=== PATIENT | female | born 1985 | race American Indian/Alaskan Native ===

== ENCOUNTER 2021-01-10 13:06 | Emergency (ER) | payer SELFPAY ==
[2021-01-10] MEDS ORDERED: IPRATROPIUM 0.02% NEBU 2.5 ML IH ONE ×2 (13:20→13:21)
[2021-01-10] MEDS ORDERED: ALBUTEROL 2.5 MG/3 ML NEBU IH ONE ×2 (13:20→13:21)
[2021-01-10] MEDS ORDERED: SODIUM CHLORIDE 0.9% 1000 ML 1,000 ML IV ONE (13:21)
[2021-01-10] MEDS ORDERED: methylPREDNISolone Sod Succinate 125 MG/2 ML INJ IV ONE (13:22)
--- NOTE | 2021-01-10 13:40 | Emergency Department Report ---
ED Asthma HPI - General Chief Complaint: Dyspnea/Respdistress Stated Complaint: ASTHMA Time Seen by Provider: 01/10/21 13:21 Source: patient Mode of arrival: Ambulatory Limitations: No Limitations - History of Present Illness Initial Comments: Patient is a 35-year-old F [place] female with past medical history of asthma since she was driven is presenting with asthma exacerbation. Patient states for the last 2 to 3 days she has had increased wheezing and shortness of breath. She is run out of her albuterol inhaler. Patient is dry cough. Thinks the symptoms are related to increased pollen count. Patient states she has some soreness in the chest from coughing and wheezing MD Complaint: "asthma attack" - Related Data Previous Rx's Medication Instructions Recorded Last Taken Type ALBUTEROL NEB's [Proventil 0.083% 5 mg IH TID PRN #30 neb 01/10/21 Unknown Rx NEBS] Albuterol Mdi (or & Nicu Only) 2 puff IH QID PRN #1 inhalation 01/10/21 Unknown Rx [ProAir HFA Inhaler] Benzonatate [Tessalon Perles] 100 mg PO Q8HR #10 capsule 01/10/21 Unknown Rx predniSONE 10 mg PO .TAPER #21 tab 01/10/21 Unknown Rx Allergies Allergy/AdvReac Type Severity Reaction Status Date / Time amoxicillin Allergy Hives Verified 01/10/21 13:49 ED Review of Systems ROS: Stated complaint: ASTHMA Other details as noted in HPI Comment: All other systems reviewed and negative ED Past Medical Hx - Past Medical History Hx Asthma: Yes - Surgical History Past Surgical History?: Yes Additional Surgical History: endometriosis and breast reduction - Medications Home Medications: Home Medications Medication Instructions Recorded Confirmed Last Taken Type ALBUTEROL NEB's [Proventil 0.083% 5 mg IH TID PRN #30 neb 01/10/21 Unknown Rx NEBS] Albuterol Mdi (or & Nicu Only) 2 puff IH QID PRN #1 inhalation 01/10/21 Unknown Rx [ProAir HFA Inhaler] Benzonatate [Tessalon Perles] 100 mg PO Q8HR #10 capsule 01/10/21 Unknown Rx predniSONE 10 mg PO .TAPER #21 tab 01/10/21 Unknown Rx ED Physical Exam - General Limitations: No Limitations General appearance: alert, in no apparent distress - Head Head exam: Present: atraumatic, normocephalic - Eye Eye exam: Present: normal appearance - ENT ENT exam: Present: mucous membranes moist - Neck Neck exam: Present: normal inspection - Respiratory Respiratory exam: Present: respiratory distress, wheezes, chest wall tenderness. Absent: normal lung sounds bilaterally, rales, rhonchi, stridor - Cardiovascular Cardiovascular Exam: Present: regular rate, normal rhythm. Absent: normal heart sounds, systolic murmur, diastolic murmur, rubs, gallop - GI/Abdominal GI/Abdominal exam: Present: soft, normal bowel sounds. Absent: distended, tenderness, guarding, rebound - Extremities Exam Extremities exam: Present: normal inspection - Back Exam Back exam: Present: normal inspection - Neurological Exam Neurological exam: Present: alert, oriented X3 - Psychiatric Psychiatric exam: Present: normal affect, normal mood - Skin Skin exam: Present: warm, dry, intact, normal color. Absent: rash ED Course Vital Signs 01/10/21 01/10/21 01/10/21 13:08 13:33 13:44 Temperature 98.2 F Pulse Rate 113 H 119 H Pulse Rate [ 111 H Anterior Bilateral Throughout] Respiratory 26 H 19 Rate Respiratory 20 Rate [Anterior Bilateral Throughout] Blood Pressure 103/70 Blood Pressure 117/60 [right arm] O2 Sat by Pulse 98 94 Oximetry ED Medical Decision Making - Medical Decision Making After the neb treatment patient states she is feeling much improved. Still has a mild residual wheeze but she states that is normal for her. She has a nebulizer machine at home and states she can take some additional breathing treatments at home. Patient discharged. Critical care attestation.: If time is entered above; I have spent that time in minutes in the direct care of this critically ill patient, excluding procedure time. ED Disposition Clinical Impression: Acute asthma exacerbation Qualifiers: Asthma severity: moderate Asthma persistence: unspecified Qualified Code(s): J45.901 - Unspecified asthma with (acute) exacerbation Disposition: TO HOME OR SELFCARE Is pt being admited?: No Does the pt Need Aspirin: No Condition: Stable Instructions: Bronchospasm, Adult Time of Disposition: 14:33
[2021-01-10 13:45] VITALS: BP 117/60
== END 2021-01-10 15:00 | disposition home or self-care (01) ==
LOC: ED 13:06
DX: J45.901 Unspecified asthma with (acute) exacerbation (principal); Z79.899 Other long term (current) drug therapy; Z88.1 Allergy status to other antibiotic agents
CPT/HCPCS: 94640; 96361; 96374; 99283; J2930; 94644

== ENCOUNTER 2022-02-10 14:19 | Emergency (ER) | payer SELFPAY ==
[2022-02-10 14:38] VITALS: BP 165/97
[2022-02-10] MEDS ORDERED: methylPREDNISolone Sod Succinate 125 MG/2 ML INJ IV ONE (14:40)
[2022-02-10] MEDS ORDERED: IPRATROPIUM 0.02% NEBU 2.5 ML IH ONE (14:40)
[2022-02-10] MEDS ORDERED: ALBUTEROL 2.5 MG/3 ML NEBU IH ONE (14:40)
[2022-02-10] MEDS ORDERED: MAGNESIUM SULFATE 2 GM/50 ML BAG IV ONE (14:41)
[2022-02-10 15:32] LABS: Basophils # (Auto) 0.1 K/mm3 (0.0-0.1); Basophils % (Auto) 1.1 % (0.0-1.8); Eosinophils # (Auto) 0.6 K/mm3 (0.0-0.4); Eosinophils % (Auto) 6.9 % (0.0-4.3); Hematocrit 39.1 % (30.3-42.9); Hemoglobin 13.3 gm/dl (10.1-14.3); Lymphocytes # (Auto) 2.7 K/mm3 (1.2-5.4); Lymphocytes % (Auto) 30.9 % (13.4-35.0); Mean Corpuscular HGB Conc 34 % (30-34); Mean Corpuscular Volume 84 fl (79-97); Monocytes # (Auto) 0.6 K/mm3 (0.0-0.8); Monocytes % (Auto) 7.1 % (0.0-7.3); Platelet Count 400 K/mm3 (140-440); Red Blood Count 4.67 M/mm3 (3.65-5.03); Red Cell Distribution Width 14.8 % (13.2-15.2)
--- NOTE | 2022-02-10 15:47 | XRay Report ---
CHEST 1 VIEW 02/10/2022 3:12 PM INDICATION / CLINICAL INFORMATION: sob. COMPARISON: None available. FINDINGS: SUPPORT DEVICES: None. HEART / MEDIASTINUM: No significant abnormality. LUNGS / PLEURA: No significant pulmonary or pleural abnormality. No pneumothorax. ADDITIONAL FINDINGS: No significant additional findings. IMPRESSION: 1. No acute findings. Signer Name: Jay Copeland DO Signed: 02/10/2022 3:37 PM Workstation Name: [employer]
[2022-02-10 15:54] LABS: Alanine Aminotransferase 13 units/L (7-56); Albumin 4.2 g/dL (3.9-5); BUN/Creatinine Ratio 11; Blood Urea Nitrogen 9 mg/dL (7-17); Hemolysis Index 21
--- NOTE | 2022-02-10 16:23 | Emergency Department Report ---
Minor Respiratory - HPI Chief Complaint: Dyspnea/Respdistress Stated Complaint: ASTHMA ATTACK Time Seen by Provider: 02/10/22 14:40 Duration: 2 Days Pain Location: Chest Severity: moderate Minor Respiratory: Yes Able to Tolerate Fluids, Yes Cough, Yes Shortness of Breath, No Rhinorrhea, No Sore Throat, No Ear Pain, No Sick Contacts, No Hemoptysis, No Chest Pain, No Fever Other History: Patient is a 36-year-old asthmatic comes to the ER with wheezing. She states that her wheezing has increased over the last few days. She ran out of her inhaler. No fever or chills. No purulent sputum. She has not seen her PCP. ED Review of Systems ROS: Stated complaint: ASTHMA ATTACK Other details as noted in HPI Comment: All other systems reviewed and negative ED Past Medical Hx - Past Medical History Previous Medical History?: Yes Hx Asthma: Yes - Surgical History Past Surgical History?: Yes Additional Surgical History: endometriosis and breast reduction - Family History Family history: no significant - Social History Smoking Status: Never Smoker Substance Use Type: None - Medications Home Medications: Home Medications Medication Instructions Recorded Confirmed Last Taken Type ALBUTEROL NEB's [Proventil 0.083% 5 mg IH TID PRN #30 neb 01/10/21 Unknown Rx NEBS] Albuterol Mdi (or & Nicu Only) 2 puff IH QID PRN #1 inhalation 01/10/21 Unknown Rx [ProAir HFA Inhaler] Benzonatate [Tessalon Perles] 100 mg PO Q8HR #10 capsule 01/10/21 Unknown Rx predniSONE 10 mg PO .TAPER #21 tab 01/10/21 Unknown Rx ALBUTEROL NEB's [Proventil 0.083% 2.5 mg IH TID PRN #1 box 02/10/22 Unknown Rx NEBS] Albuterol Mdi (or & Nicu Only) 2 puff IH QID PRN #1 inhalation 02/10/22 Unknown Rx [ProAir HFA Inhaler] Cetirizine HCl [ZyrTEC] 10 mg PO DAILY #30 capsule 02/10/22 Unknown Rx Fluticasone [Flonase] 1 spray NS QDAY #1 bottle 02/10/22 Unknown Rx predniSONE [Deltasone] 20 mg PO DAILY #5 tablet 02/10/22 Unknown Rx Minor Respiratory Exam - Exam General: Vital signs noted. No distress. Alert and acting appropriately. HEENT: Yes Moist Mucous Membranes, No Pharyngeal Erythema, No Pharyngeal Exudates, No Rhinorrhea, No Conjuctival Injection, No Frontal Tenderness, No Maxillary Tenderness Ear: Neither TM Bulge, Neither TM Erythema, Neither EAC Pain, Neither EAC Discharge Neck: Yes Supple, No Adenopathy Lungs: Yes Good Air Exchange, Yes Wheezes, Yes Use of Accessory Muscles, No Ronchi, No Stridor, No Cough, No Labored Respirations, No Retractions, No Other Abnormal Lung Sounds Heart: Yes Regular, No Murmur Abdomen: Yes Normal Bowel Sounds, No Tenderness, No Peritoneal Signs Skin: No Rash, No Edema Neurologic: Alert and oriented, no deficits. Musculoskeletal: Unremarkable. ED Course Vital Signs 02/10/22 02/10/22 14:35 16:05 Temperature 98.2 F Pulse Rate 108 H Pulse Rate [ 98 H Anterior Bilateral Throughout] Respiratory 36 H Rate Respiratory 18 Rate [Anterior Bilateral Throughout] Blood Pressure 165/97 [Right] O2 Sat by Pulse 99 Oximetry ED Medical Decision Making - Lab Data Result diagrams: 02/10/22 15:10 02/10/22 15:10 - Radiology Data Radiology results: report reviewed, image reviewed No acute process - Medical Decision Making Labs 02/10/22 02/10/22 15:10 15:10 WBC 8.6 RBC 4.67 Hgb 13.3 Hct 39.1 MCV 84 MCH 29 MCHC 34 RDW 14.8 Plt Count 400 Lymph % (Auto) 30.9 [place] % (Auto) 7.1 Eos % (Auto) 6.9 H Baso % (Auto) 1.1 Lymph # (Auto) 2.7 [place] # (Auto) 0.6 Eos # (Auto) 0.6 H Baso # (Auto) 0.1 Seg Neutrophils % 54.0 Seg Neutrophils # 4.7 Sodium 141 Potassium 4.5 Chloride 105.3 Carbon Dioxide 22 Anion Gap 18 BUN 9 Creatinine 0.8 Estimated GFR > 60 BUN/Creatinine Ratio 11 Glucose 86 Calcium 9.0 Total Bilirubin 0.40 AST 17 ALT 13 Alkaline Phosphatase 70 Total Protein 7.1 Albumin 4.2 Albumin/Globulin Ratio 1.4 Vital Signs 02/10/22 02/10/22 14:35 16:05 Temperature 98.2 F Pulse Rate 108 H Pulse Rate [ 98 H Anterior Bilateral Throughout] Respiratory 36 H Rate Respiratory 18 Rate [Anterior Bilateral Throughout] Blood Pressure 165/97 [Right] O2 Sat by Pulse 99 Oximetry No hypotension, tachycardia or hypoxia. Labs noted. X-ray noted. Neb treatments, Solu-Medrol, and magnesium. Wheezing then ceased. Patient ambulatory without shortness of breath. No hypoxia. Patient being discharged home with discharge plan of care including diet, activity, medications and follow-up. She verbalizes understanding of plan of care. - Differential Diagnosis Asthma acute exacerbation, rule out infection Critical care attestation.: If time is entered above; I have spent that time in minutes in the direct care of this critically ill patient, excluding procedure time. ED Disposition Clinical Impression: Asthma with acute exacerbation Qualifiers: Asthma severity: mild Asthma persistence: intermittent Qualified Code(s): J45.21 - Mild intermittent asthma with (acute) exacerbation Disposition: HOME / SELF CARE / HOMELESS Is pt being admited?: No Does the pt Need Aspirin: No Condition: Stable Instructions: Asthma, Adult Additional Instructions: Medications as ordered Follow-up with PCP for recheck. Have given you referral below Prescriptions: predniSONE [Deltasone] 20 mg PO DAILY #5 tablet Fluticasone [Flonase] 1 spray NS QDAY #1 bottle Albuterol Mdi (or & Nicu Only) [ProAir HFA Inhaler] 2 puff IH QID PRN #1 inhalation PRN Reason: Shortness Of Breath ALBUTEROL NEB's [Proventil 0.083% NEBS] 2.5 mg IH TID PRN #1 box PRN Reason: Wheezing Cetirizine HCl [ZyrTEC] 10 mg PO DAILY #30 capsule Referrals: CHRISTOPHER PRICE MD [Staff Physician] - 3-5 Days Forms: Work/School Release Form(ED) Time of Disposition: 16:31
== END 2022-02-10 17:49 | disposition home or self-care (01) ==
LOC: ED 14:19
DX: J45.901 Unspecified asthma with (acute) exacerbation (principal); Z88.1 Allergy status to other antibiotic agents; Z98.890 Other specified postprocedural states; Z79.899 Other long term (current) drug therapy
CPT/HCPCS: 36415; 71045; 80053; 85025; 94640; 96365; 96375; 99284; J2930; J3475; 94644